=== PATIENT | female | born 1935 | race African-American/Black ===

== ENCOUNTER 2019-07-13 10:21 | Inpatient (IN) | payer MEDICARE, OTHER ==
[~2019-07-13] VITALS: Ht 167.6 cm; Wt 43.7 kg
[~2019-07-13 10:21] MED LIST: AMLO10TA80 PO; ASPI-1079 PO; BENA10TA75; CEPH GT; LISI40TA4 PO; PANT40SU2 PO; SUCR1ORA2 PO
[2019-07-13] MEDS ORDERED: IPRATROPIUM BROMIDE (0.02%) 0.5MG/2.5ML NEB HHN STA (11:06)
[2019-07-13] MEDS ORDERED: METHYLPREDNISOLONE SOD SUCC 125 MG/2 ML VIAL IV STA (11:06)
[2019-07-13] MEDS ORDERED: ALBUTEROL (0.083%) 2.5MG/3ML NEB HHN STA (11:06)
[2019-07-13] MEDS ORDERED: IPRATROPIUM BROMIDE (0.02%) 0.5MG/2.5ML NEB ONE (11:19)
[2019-07-13 11:57] LABS: BASOPHILS % 0.7 % (0.0-2.0); EOSINOPHILS % 2.5 % (0.0-5.0); HEMATOCRIT. 37.7 % (36.0-48.0); HEMOGLOBIN. 12.7 g/dL (12.0-16.0); LYMPHOCYTES % 13.7 % (20.0-50.0); MEAN CORPUSCULAR HEMOGLOBIN 29.8 pg (28.0-32.0); MEAN CORPUSCULAR VOLUME 88.3 fL (81.0-99.0); MEAN PLATELET VOLUME 7.8 fl (7.4-10.4); MONOCYTES % 7.1 % (2.0-8.0); PLATELET 365 x1000/uL (130-400); RED BLOOD CELL COUNT 4.26 mill/uL (4.2-5.4); RED CELL DISTRIBUTION WIDTH 15.1 % (11.6-14.6)
[2019-07-13 12:03] LABS: CHLORIDE 87 mEq/L (98-107)
[2019-07-13 12:38] LABS: BG BASE EXCESS -0.4 mmol/L (-2.0-2.0); BG CARBOXYHEMOGLOBIN 0.4 % (0.5-1.5); BG DEOXYHEMOGLOBIN 1.2 % (0.0-5.0); BG FRACTION INSPIRED OXYGEN 32; BG HCO3 ACT 24.7 mmol/L (22.0-26.0); BG METHEMOGLOBIN 0.3 % (0.0-1.5); BG OXYGEN SATURATION 98.8 % (92.0-98.5); BG OXYHEMOGLOBIN 98.1 % (94.0-97.0); BG PCO2 42.4 mmHg (35.0-45.0); BG PH 7.383 (7.350-7.450); BG PO2 149.6 mmHg (75.0-100.0); BG SAMPLE SITE RIGHT BRACHIAL; BG TOTAL HEMOGLOBIN 12.4 g/dL (12.0-18.0); BG VENT MODE NASAL CANNULA
[2019-07-13] MEDS: SODIUM CHLORIDE 0.9% 1,000 ML IV SCH (14:01)
[2019-07-13] MEDS ORDERED: DOCUSATE SODIUM 100MG CAPSULE PO PRN (14:15)
[2019-07-13] MEDS ORDERED: ONDANSETRON HCL 4MG/2ML INJ IV PRN (14:15)
[2019-07-13] MEDS ORDERED: CLONIDINE 0.1MG TABLET PO PRN (14:15)
[2019-07-13] MEDS ORDERED: ZOLPIDEM TARTRATE 5MG TABLET PO PRN (14:15)
[2019-07-13] MEDS ORDERED: NA PHOS,M-B/NA PHOS,DI-BA ENEMA 118ML PR PRN (14:15)
[2019-07-13] MEDS ORDERED: TRAMADOL 50MG TABLET PO PRN (14:15)
[2019-07-13] MEDS ORDERED: LORAZEPAM 0.5MG TABLET PO PRN (14:15)
[2019-07-13] MEDS ORDERED: GUAIFENESIN 200MG/10ML SUGAR FREE UDC PO PRN (14:15)
[2019-07-13] MEDS ORDERED: MAGNESIUM/ALUMINUM HYDROXIDE/SIMETHICONE 30ML UDC PO PRN (14:15)
[2019-07-13] MEDS ORDERED: ACETAMINOPHEN 325MG TABLET PO PRN (14:15)
[2019-07-13] MEDS ORDERED: IPRATROPIUM/ALBUTEROL 0.5-3(2.5)MG/3ML NEB NEB PRN (14:15)
[2019-07-13] MEDS ORDERED: ENOXAPARIN 40MG/0.4ML SYR SUBCUT SCH (14:15)
[2019-07-13] MEDS ORDERED: NITROGLYCERIN 0.4MG TABLET SL SL PRN (14:15)
[2019-07-13 15:14] VITALS: BP 135/74
[2019-07-13 15:32] VITALS: BP 135/74
[2019-07-13] MEDS ORDERED: HYDR12.54 MT (16:33)
[2019-07-13] MEDS ORDERED: VIT1TABL86 MT (16:33)
[2019-07-13] MEDS ORDERED: LEFL10TA15 MT (16:33)
[2019-07-13] MEDS ORDERED: LISI40TA4 MT (16:33)
[2019-07-13] MEDS: ENOXAPARIN 30MG/0.3ML SYR SUBCUT SCH (16:54)
[2019-07-13] MEDS: DILTIAZEM HCL 60MG TABLET PO SCH ×2 (16:59→23:05)
[2019-07-13] MEDS ORDERED: LEVOFLOXACIN 500MG PREMIX 100 ML IV SCH (18:00)
[2019-07-13 18:19] VITALS: BP 112/65
[2019-07-13 19:43] LABS: T4 FREE 1.64 ng/dL (0.76-1.46)
[2019-07-13 20:00] VITALS: BP 124/59
[2019-07-13] MEDS: IPRATROPIUM/ALBUTEROL 0.5-3(2.5)MG/3ML NEB HHN SCH ×2 (20:13→23:45)
[2019-07-13] MEDS: ASCORBIC ACID 500 MG TABLET PO SCH (21:16)
[2019-07-13] MEDS: FAMOTIDINE 20MG TABLET PO SCH (21:16)
[2019-07-13] MEDS: METHYLPREDNISOLONE SOD SUCC 125 MG/2 ML VIAL IV SCH (21:17)
[2019-07-13 22:00] VITALS: BP 121/44
[2019-07-13 23:36] LABS: CLARITY URINE CLEAR (CLEAR); COLOR URINE YELLOW (YELLOW); KETONES URINE 1+ (NEGATIVE); LEUKOCYTE ESTERASE URINE NEGATIVE (NEGATIVE); NITRITE URINE NEGATIVE (NEGATIVE); OCCULT BLOOD URINE NEGATIVE (NEGATIVE); PROTEIN URINE TRACE (NEGATIVE); SPECIFIC GRAVITY URINE 1.022 (1.005-1.030); UROBILINOGEN URINE 0.2 E.U./dL (0.2-1.0)
[2019-07-13 23:54] VITALS: BP 145/65
[2019-07-14] VITALS (11 sets, daily range): BP systolic 100–134; BP diastolic 50–73
[2019-07-14 00:03] LABS: CREATINE KINASE 52 IU/L (26-192); CREATINE KINASE MB FRACTION 2.7 ng/mL (0.5-3.6)
[2019-07-14] MEDS: SODIUM CHLORIDE 0.9% 1,000 ML IV SCH ×2 (02:54→17:06)
[2019-07-14] MEDS: IPRATROPIUM/ALBUTEROL 0.5-3(2.5)MG/3ML NEB HHN SCH ×5 (04:14→21:39)
[2019-07-14] MEDS: METHYLPREDNISOLONE SOD SUCC 125 MG/2 ML VIAL IV SCH (05:00)
[2019-07-14] MEDS: DILTIAZEM HCL 60MG TABLET PO SCH ×3 (05:00→17:08)
[2019-07-14 07:29] LABS: CREATINE KINASE 46 IU/L (26-192); CREATINE KINASE MB FRACTION 2.7 ng/mL (0.5-3.6)
[2019-07-14] MEDS: ASCORBIC ACID 500 MG TABLET PO SCH ×2 (08:43→21:20)
[2019-07-14] MEDS: ASPIRIN 325MG EC TABLET PO SCH (08:43)
[2019-07-14] MEDS: ZINC SULFATE 220 MG ( 50 ) CAPSULE PO SCH (08:43)
[2019-07-14 11:30] LABS: *AMPHETAMINES SCREEN URINE NEGATIVE (NEGATIVE); *BARBITURATES SCREEN URINE NEGATIVE (NEGATIVE); *BENZODIAZEPINES SCREEN URINE NEGATIVE (NEGATIVE)
[2019-07-14 11:33] LABS: OPIATES URINE SCREEN PRESUMTIVE POSITIVE (NEGATIVE); PHENCYCLIDINE URINE SCREEN NEGATIVE (NEGATIVE)
[2019-07-14 11:34] LABS: CANNABINOID URINE SCREEN NEGATIVE (NEGATIVE)
[2019-07-14 11:35] LABS: METHADONE URINE SCREEN NEGATIVE (NEGATIVE)
[2019-07-14] MEDS ORDERED: INFLUENZA VIRUS VACCINE(AFLURIA) 0.5ML SYR IM ONE (12:00)
[2019-07-14 12:45] LABS: CHLORIDE 91 mEq/L (98-107)
[2019-07-14] MEDS: LEVOFLOXACIN 250MG PREMIX 50 ML IV SCH (13:23)
[2019-07-14 13:29] LABS: *COCAINE SCREEN URINE NEGATIVE (NEGATIVE)
[2019-07-14] MEDS: METHYLPREDNISOLONE SOD SUCC 40 MG/ML VIAL IV SCH ×2 (14:37→21:20)
[2019-07-14] MEDS: MONTELUKAST SODIUM 10MG TABLET PO SCH (17:07)
[2019-07-14] MEDS: ENOXAPARIN 30MG/0.3ML SYR SUBCUT SCH (17:07)
[2019-07-14] MEDS: FLUTICASONE PROPIONATE 50MCG/SPRAY BOTTLE BOTHNSTRLS SCH (21:20)
[2019-07-14] MEDS: FAMOTIDINE 20MG TABLET PO SCH (21:20)
[2019-07-15] VITALS (12 sets, daily range): BP systolic 97–137; BP diastolic 49–90
[2019-07-15] MEDS: IPRATROPIUM/ALBUTEROL 0.5-3(2.5)MG/3ML NEB HHN SCH ×6 (01:22→20:30)
[2019-07-15] MEDS: SODIUM CHLORIDE 0.9% 1,000 ML IV SCH ×2 (06:03→21:05)
[2019-07-15] MEDS: METHYLPREDNISOLONE SOD SUCC 40 MG/ML VIAL IV SCH ×3 (06:03→20:59)
[2019-07-15] MEDS: DILTIAZEM HCL 60MG TABLET PO SCH ×4 (06:03→17:50)
[2019-07-15 07:05] LABS: CHLORIDE 97 mEq/L (98-107)
[2019-07-15 07:11] LABS: HEMOGLOBIN. 10.6 g/dL (12.0-16.0); MEAN CORPUSCULAR HEMOGLOBIN 28.8 pg (28.0-32.0); MEAN CORPUSCULAR VOLUME 86.9 fL (81.0-99.0); MEAN PLATELET VOLUME 7.9 fl (7.4-10.4); PLATELET 328 x1000/uL (130-400); RED BLOOD CELL COUNT 3.69 mill/uL (4.2-5.4); RED CELL DISTRIBUTION WIDTH 15.3 % (11.6-14.6)
[2019-07-15 07:39] LABS: PHOSPHORUS 2.2 mg/dL (2.5-4.9)
[2019-07-15] MEDS: ZINC SULFATE 220 MG ( 50 ) CAPSULE PO SCH (08:53)
[2019-07-15] MEDS: ASCORBIC ACID 500 MG TABLET PO SCH ×2 (08:53→20:59)
[2019-07-15] MEDS: ASPIRIN 325MG EC TABLET PO SCH (08:53)
[2019-07-15] MEDS: FLUTICASONE PROPIONATE 50MCG/SPRAY BOTTLE BOTHNSTRLS SCH ×2 (08:53→21:04)
[2019-07-15] MEDS: LEVOFLOXACIN 250MG PREMIX 50 ML IV SCH (14:41)
[2019-07-15 17:24] LABS: PLATELET ESTIMATE NORMAL
[2019-07-15] MEDS: MONTELUKAST SODIUM 10MG TABLET PO SCH ×2 (17:48→17:50)
[2019-07-15] MEDS: ENOXAPARIN 30MG/0.3ML SYR SUBCUT SCH (17:51)
[2019-07-15] MEDS: LORATADINE 10MG TABLET PO SCH (17:56)
[2019-07-15] MEDS: FAMOTIDINE 20MG TABLET PO SCH (20:59)
[2019-07-16] VITALS (8 sets, daily range): BP systolic 101–137; BP diastolic 52–117
[2019-07-16] MEDS: IPRATROPIUM/ALBUTEROL 0.5-3(2.5)MG/3ML NEB HHN SCH ×3 (00:27→08:13)
[2019-07-16] MEDS: DILTIAZEM HCL 60MG TABLET PO SCH ×3 (01:18→12:42)
[2019-07-16] MEDS: FLUTICASONE PROPIONATE 50MCG/SPRAY BOTTLE BOTHNSTRLS SCH (08:18)
[2019-07-16] MEDS: ZINC SULFATE 220 MG ( 50 ) CAPSULE PO SCH (08:19)
[2019-07-16] MEDS: LORATADINE 10MG TABLET PO SCH (08:19)
[2019-07-16] MEDS: SODIUM CHLORIDE 0.9% 1,000 ML IV SCH (08:19)
[2019-07-16] MEDS: ASCORBIC ACID 500 MG TABLET PO SCH (08:19)
[2019-07-16] MEDS: ASPIRIN 325MG EC TABLET PO SCH (08:19)
[2019-07-16] MEDS ORDERED: METHYLPREDNISOLONE SOD SUCC 40 MG/ML VIAL IV SCH (09:00)
== END 2019-07-16 13:12 | disposition home health service (06) | DRG 189 ==
LOC: ER 10:21 → 3WST 12:46 → EDBEDREQ 12:53 → ENRESERV 14:03
PROVIDERS: ADMIT Internal Medicine; ATTEND Internal Medicine
PROC: 5A09357 Assistance with Respiratory Ventilation, Less than 24 Consecutive Hours, Continuous Positive Airway Pressure (ICD-10-PCS; principal; 2019-07-13)
DX: J96.00 Acute respiratory failure, unspecified whether with hypoxia or hypercapnia (principal); J44.1 Chronic obstructive pulmonary disease with (acute) exacerbation; E87.1 Hypo-osmolality and hyponatremia; I10 Essential (primary) hypertension; K21.9 Gastro-esophageal reflux disease without esophagitis; J31.0 Chronic rhinitis; Z82.49 Family history of ischemic heart disease and other diseases of the circulatory system; Z87.891 Personal history of nicotine dependence; Z90.710 Acquired absence of both cervix and uterus; Z88.8 Allergy status to other drugs, medicaments and biological substances; Z79.82 Long term (current) use of aspirin; Z79.899 Other long term (current) drug therapy
CPT/HCPCS: 36415; 36600; 71045; 80048; 80053; 80061; 80305; 81003; 82375; 82550; 82553; 82805; 83036; 83735; 83880; 84100; 84300; 84439; 84443; 84484; 85025; 85379; 90686; 93005; 93306; 93970; 94640; 94644; 94660; 97162; 99291; J1650; J1956; J2920; J2930

== ENCOUNTER 2019-10-24 13:13 | Inpatient (IN) | payer MEDICARE, OTHER ==
[~2019-10-24] VITALS: Ht 162.6 cm; Wt 50.8 kg
[~2019-10-24 13:13] MED LIST changes: +HYDR12.54 MT; +LEFL10TA15 MT; +LISI40TA4 MT; +VIT1TABL86 MT
[2019-10-24] MEDS ORDERED: METHYLPREDNISOLONE SOD SUCC 125 MG/2 ML VIAL IV STA (13:45)
[2019-10-24] MEDS ORDERED: ASPIRIN 81MG TABLET PO ONE (13:45)
[2019-10-24] MEDS ORDERED: NITROGLYCERIN 0.4MG TABLET SL SL PRN ×2 (13:45→15:45)
[2019-10-24] MEDS ORDERED: IPRATROPIUM BROMIDE (0.02%) 0.5MG/2.5ML NEB HHN STA (13:45)
[2019-10-24] MEDS ORDERED: ALBUTEROL (0.083%) 2.5MG/3ML NEB HHN STA (13:45)
[2019-10-24 14:00] LABS: BASOPHILS % 0.7 % (0.0-2.0); EOSINOPHILS % 1.3 % (0.0-5.0); HEMATOCRIT. 39.2 % (36.0-48.0); HEMOGLOBIN. 13.4 g/dL (12.0-16.0); LYMPHOCYTES % 15.6 % (20.0-50.0); MEAN CORPUSCULAR HEMOGLOBIN 29.2 pg (28.0-32.0); MEAN CORPUSCULAR VOLUME 85.6 fL (81.0-99.0); MEAN PLATELET VOLUME 7.3 fl (7.4-10.4); MONOCYTES % 5.1 % (2.0-8.0); NEUTROPHILS % 77.3 % (40.0-76.0); PLATELET 440 x1000/uL (130-400); RED BLOOD CELL COUNT 4.58 mill/uL (4.2-5.4); RED CELL DISTRIBUTION WIDTH 15.3 % (11.6-14.6)
[2019-10-24 14:05] LABS: CHLORIDE 84 mEq/L (98-107)
[2019-10-24] MEDS ORDERED: ACETAMINOPHEN 325MG TABLET PO PRN ×2 (15:45)
[2019-10-24] MEDS ORDERED: MAGNESIUM/ALUMINUM HYDROXIDE/SIMETHICONE 30ML UDC PO PRN (15:45)
[2019-10-24] MEDS ORDERED: TRAMADOL 50MG TABLET PO PRN (15:45)
[2019-10-24] MEDS ORDERED: IPRATROPIUM/ALBUTEROL 0.5-3(2.5)MG/3ML NEB ORI PRN (15:45)
[2019-10-24] MEDS ORDERED: CLONIDINE 0.1MG TABLET PO PRN (15:45)
[2019-10-24] MEDS ORDERED: ONDANSETRON HCL 4MG/2ML INJ IV PRN (15:45)
[2019-10-24] MEDS ORDERED: DOCUSATE SODIUM 100MG CAPSULE PO PRN (15:45)
[2019-10-24] MEDS ORDERED: LORAZEPAM 0.5MG TABLET PO PRN (15:45)
[2019-10-24] MEDS ORDERED: ZOLPIDEM TARTRATE 5MG TABLET PO PRN (15:45)
[2019-10-24] MEDS ORDERED: GUAIFENESIN 200MG/10ML SUGAR FREE UDC PO PRN (15:45)
[2019-10-24] MEDS ORDERED: ENOXAPARIN 40MG/0.4ML SYR SUBCUT SCH (16:00)
[2019-10-24] MEDS ORDERED: AZITHROMYCIN 500 MG in DEXT 5% WATER 250 ML IV SCH (16:30)
[2019-10-24] MEDS: SODIUM CHLORIDE 0.9% 1,000 ML IV SCH (16:34)
[2019-10-24 17:36] VITALS: BP 132/66
[2019-10-24 17:57] VITALS: BP 132/66
[2019-10-24] MEDS: SUCRALFATE 1 G/10 ML UDC PO SCH ×2 (18:44→20:54)
[2019-10-24] MEDS: AMLODIPINE 10MG TABLET PO SCH (18:44)
[2019-10-24 19:27] VITALS: BP 153/86
[2019-10-24 20:00] VITALS: BP 105/49
[2019-10-24] MEDS ORDERED: LISINOPRIL 20MG TABLET PO SCH (21:00)
[2019-10-24] MEDS: METHYLPREDNISOLONE SOD SUCC 125 MG/2 ML VIAL IV SCH (21:13)
[2019-10-24] MEDS: AZITHROMYCIN 500 MG in DEXT 5% WATER 250 ML IV SCH (21:13)
[2019-10-24] MEDS: GUAIFENESIN 600MG ER TABLET PO SCH (21:13)
[2019-10-24] MEDS: ASCORBIC ACID 500 MG TABLET PO SCH (21:13)
[2019-10-24 21:32] LABS: SODIUM URINE RANDOM 22 mEq/L
[2019-10-24 21:38] LABS: *AMPHETAMINES SCREEN URINE NEGATIVE (NEGATIVE); *BARBITURATES SCREEN URINE NEGATIVE (NEGATIVE); *BENZODIAZEPINES SCREEN URINE NEGATIVE (NEGATIVE); *COCAINE SCREEN URINE NEGATIVE (NEGATIVE); CANNABINOID URINE SCREEN NEGATIVE (NEGATIVE); PHENCYCLIDINE URINE SCREEN NEGATIVE (NEGATIVE)
[2019-10-24 21:39] LABS: METHADONE URINE SCREEN NEGATIVE (NEGATIVE); OPIATES URINE SCREEN NEGATIVE (NEGATIVE)
[2019-10-24 22:00] VITALS: BP 118/27
[2019-10-24 23:24] LABS: CREATINE KINASE 112 IU/L (26-192)
[2019-10-24 23:25] LABS: CREATINE KINASE MB FRACTION 3.6 ng/mL (0.5-3.6)
[2019-10-25] VITALS (12 sets, daily range): BP systolic 102–130; BP diastolic 51–79
[2019-10-25] MEDS ORDERED: CHOL40002 PO (01:33)
[2019-10-25] MEDS ORDERED: FLUT16SP15 INH (01:35)
[2019-10-25] MEDS ORDERED: TIOT18CA3 PO (01:41)
[2019-10-25] MEDS ORDERED: MULT-1146 PO (01:42)
[2019-10-25] MEDS ORDERED: METO-385 PO (01:43)
[2019-10-25] MEDS ORDERED: ALBUTEROL (01:46)
[2019-10-25] MEDS: SODIUM CHLORIDE 0.9% 1,000 ML IV SCH ×2 (04:30→16:09)
[2019-10-25] MEDS: METHYLPREDNISOLONE SOD SUCC 125 MG/2 ML VIAL IV SCH ×3 (05:31→22:00)
[2019-10-25] MEDS: SUCRALFATE 1 G/10 ML UDC PO SCH ×4 (06:18→20:25)
[2019-10-25 06:57] LABS: CHLORIDE 90 mEq/L (98-107)
[2019-10-25 07:01] LABS: BASOPHILS % 0.4 % (0.0-2.0); HEMOGLOBIN. 11.6 g/dL (12.0-16.0); LYMPHOCYTES % 14.8 % (20.0-50.0); MEAN CORPUSCULAR HEMOGLOBIN 29.3 pg (28.0-32.0); MEAN CORPUSCULAR VOLUME 86.1 fL (81.0-99.0); MEAN PLATELET VOLUME 7.7 fl (7.4-10.4); MONOCYTES % 1.8 % (2.0-8.0); PLATELET 360 x1000/uL (130-400); RED BLOOD CELL COUNT 3.95 mill/uL (4.2-5.4); RED CELL DISTRIBUTION WIDTH 15.3 % (11.6-14.6)
[2019-10-25 07:16] LABS: PHOSPHORUS 3.2 mg/dL (2.5-4.9)
[2019-10-25 07:18] LABS: CREATINE KINASE 56 IU/L (26-192)
[2019-10-25 07:22] LABS: CREATINE KINASE MB FRACTION 3.4 ng/mL (0.5-3.6)
[2019-10-25] MEDS: GUAIFENESIN 600MG ER TABLET PO SCH ×2 (08:28→20:25)
[2019-10-25] MEDS: ZINC SULFATE 220 MG ( 50 ) CAPSULE PO SCH (08:28)
[2019-10-25] MEDS: ASCORBIC ACID 500 MG TABLET PO SCH ×2 (08:28→22:01)
[2019-10-25] MEDS: IPRATROPIUM/ALBUTEROL 0.5-3(2.5)MG/3ML NEB HHN SCH ×4 (08:30→21:45)
[2019-10-25] MEDS: AMLODIPINE 10MG TABLET PO SCH (08:31)
[2019-10-25] MEDS ORDERED: MAGNESIUM 2 G PREMIX 50 ML IV SCH (11:00)
[2019-10-25] MEDS: ENOXAPARIN 30MG/0.3ML SYR SUBCUT SCH (15:57)
[2019-10-25] MEDS: AZITHROMYCIN 500 MG in DEXT 5% WATER 250 ML IV SCH (20:25)
[2019-10-26] VITALS (12 sets, daily range): BP systolic 106–166; BP diastolic 32–69
[2019-10-26] MEDS: IPRATROPIUM/ALBUTEROL 0.5-3(2.5)MG/3ML NEB HHN SCH ×3 (01:14→10:10)
[2019-10-26] MEDS: SUCRALFATE 1 G/10 ML UDC PO SCH ×4 (06:10→21:26)
[2019-10-26] MEDS: METHYLPREDNISOLONE SOD SUCC 125 MG/2 ML VIAL IV SCH (06:11)
[2019-10-26] MEDS: SODIUM CHLORIDE 0.9% 1,000 ML IV SCH (06:17)
[2019-10-26 07:14] LABS: HEMATOCRIT. 37.6 % (36.0-48.0); HEMOGLOBIN. 12.4 g/dL (12.0-16.0); MEAN CORPUSCULAR HEMOGLOBIN 28.7 pg (28.0-32.0); MEAN CORPUSCULAR VOLUME 87.5 fL (81.0-99.0); MEAN PLATELET VOLUME 7.2 fl (7.4-10.4); PLATELET 245 x1000/uL (130-400); RED CELL DISTRIBUTION WIDTH 15.7 % (11.6-14.6)
[2019-10-26] MEDS: AMLODIPINE 10MG TABLET PO SCH (08:04)
[2019-10-26] MEDS: GUAIFENESIN 600MG ER TABLET PO SCH ×2 (08:04→21:26)
[2019-10-26] MEDS: ASCORBIC ACID 500 MG TABLET PO SCH ×2 (08:04→21:26)
[2019-10-26] MEDS: ZINC SULFATE 220 MG ( 50 ) CAPSULE PO SCH (08:04)
[2019-10-26 09:17] LABS: CHLORIDE 92 mEq/L (98-107)
[2019-10-26] MEDS: METHYLPREDNISOLONE SOD SUCC 40 MG/ML VIAL IV SCH ×2 (13:16→21:26)
[2019-10-26 13:20] LABS: PLATELET ESTIMATE NORMAL
[2019-10-26] MEDS: SODIUM CHLORIDE 1000MG TABLET PO SCH ×2 (13:34→16:46)
[2019-10-26] MEDS: IPRATROPIUM BROMIDE (0.02%) 0.5MG/2.5ML NEB HHN SCH ×2 (15:50→22:18)
[2019-10-26] MEDS: ENOXAPARIN 30MG/0.3ML SYR SUBCUT SCH (16:46)
[2019-10-26] MEDS: AZITHROMYCIN 500 MG in DEXT 5% WATER 250 ML IV SCH (21:26)
[2019-10-27] VITALS (12 sets, daily range): BP systolic 96–131; BP diastolic 53–68
[2019-10-27] MEDS: IPRATROPIUM BROMIDE (0.02%) 0.5MG/2.5ML NEB HHN SCH ×4 (01:13→20:04)
[2019-10-27] MEDS: SUCRALFATE 1 G/10 ML UDC PO SCH ×4 (05:54→20:58)
[2019-10-27] MEDS: METHYLPREDNISOLONE SOD SUCC 40 MG/ML VIAL IV SCH ×2 (05:54→17:22)
[2019-10-27 06:14] LABS: HEMATOCRIT. 32.7 % (36.0-48.0); MEAN CORPUSCULAR HEMOGLOBIN 28.6 pg (28.0-32.0); MEAN CORPUSCULAR VOLUME 84.8 fL (81.0-99.0); MEAN PLATELET VOLUME 6.9 fl (7.4-10.4); PLATELET 358 x1000/uL (130-400); RED BLOOD CELL COUNT 3.86 mill/uL (4.2-5.4); RED CELL DISTRIBUTION WIDTH 15.7 % (11.6-14.6)
[2019-10-27 06:39] LABS: CHLORIDE 98 mEq/L (98-107)
[2019-10-27 06:53] LABS: PHOSPHORUS 1.9 mg/dL (2.5-4.9)
[2019-10-27] MEDS: SODIUM CHLORIDE 1000MG TABLET PO SCH ×3 (08:00→16:13)
[2019-10-27] MEDS: GUAIFENESIN 600MG ER TABLET PO SCH ×2 (08:00→20:58)
[2019-10-27] MEDS: ZINC SULFATE 220 MG ( 50 ) CAPSULE PO SCH (08:00)
[2019-10-27] MEDS: ASCORBIC ACID 500 MG TABLET PO SCH ×2 (08:00→20:58)
[2019-10-27] MEDS: AMLODIPINE 10MG TABLET PO SCH (08:00)
[2019-10-27 10:42] LABS: PLATELET ESTIMATE NORMAL
[2019-10-27] MEDS: ENOXAPARIN 30MG/0.3ML SYR SUBCUT SCH (16:13)
[2019-10-27] MEDS: AZITHROMYCIN 500 MG in DEXT 5% WATER 250 ML IV SCH (20:58)
[2019-10-28] VITALS (8 sets, daily range): BP systolic 115–138; BP diastolic 62–81
[2019-10-28] MEDS: IPRATROPIUM BROMIDE (0.02%) 0.5MG/2.5ML NEB HHN SCH ×2 (01:39→09:05)
[2019-10-28] MEDS: SUCRALFATE 1 G/10 ML UDC PO SCH ×2 (06:41→12:02)
[2019-10-28] MEDS: METHYLPREDNISOLONE SOD SUCC 40 MG/ML VIAL IV SCH (06:41)
[2019-10-28] MEDS: AMLODIPINE 10MG TABLET PO SCH (08:43)
[2019-10-28] MEDS: ZINC SULFATE 220 MG ( 50 ) CAPSULE PO SCH (08:43)
[2019-10-28] MEDS: ASCORBIC ACID 500 MG TABLET PO SCH (08:43)
[2019-10-28] MEDS: GUAIFENESIN 600MG ER TABLET PO SCH (08:44)
[2019-10-28] MEDS: SODIUM CHLORIDE 1000MG TABLET PO SCH ×2 (08:44→12:03)
[2019-10-29] MEDS ORDERED: METHYLPREDNISOLONE SOD SUCC 40 MG/ML VIAL IV SCH (09:00)
== END 2019-10-28 14:03 | disposition home or self-care (01) | DRG 189 ==
LOC: ER 13:32 → EDBEDREQ 15:19 → EDBEDREQTM 15:19 → MICUSO 15:34 → 3WST 17:23
PROVIDERS: ADMIT Internal Medicine; ATTEND Internal Medicine
DX: J96.00 Acute respiratory failure, unspecified whether with hypoxia or hypercapnia (principal); J44.1 Chronic obstructive pulmonary disease with (acute) exacerbation; E87.1 Hypo-osmolality and hyponatremia; E46 Unspecified protein-calorie malnutrition; Z68.1 Body mass index [BMI] 19.9 or less, adult; I10 Essential (primary) hypertension; K21.9 Gastro-esophageal reflux disease without esophagitis; M19.90 Unspecified osteoarthritis, unspecified site; R79.89 Other specified abnormal findings of blood chemistry; T38.0X5A Adverse effect of glucocorticoids and synthetic analogues, initial encounter; T50.2X5A Adverse effect of carbonic-anhydrase inhibitors, benzothiadiazides and other diuretics, initial encounter; Y92.89 Other specified places as the place of occurrence of the external cause; Z88.8 Allergy status to other drugs, medicaments and biological substances; Z79.82 Long term (current) use of aspirin; Z79.899 Other long term (current) drug therapy; Z90.49 Acquired absence of other specified parts of digestive tract; Z90.710 Acquired absence of both cervix and uterus
CPT/HCPCS: 36415; 71045; 80053; 80305; 80320; 82550; 82553; 83036; 83735; 83880; 84100; 84300; 84484; 85025; 93005; 93970; 94640; 99291; J0456; J1650; J2920; J2930; J3475; J7030; J7060; G0480

== ENCOUNTER 2020-02-05 22:30 | Inpatient (IN) | payer MEDICARE, OTHER ==
[~2020-02-05] VITALS: Ht 162.6 cm; Wt 38.1 kg
[~2020-02-05 22:30] MED LIST changes: +ALBUTEROL; -BENA10TA75; +CHOL40002 PO; +FLUT16SP15 INH; -HYDR12.54 MT; -LISI40TA4 MT; +METO-385 PO; +MULT-1146 PO; +TIOT18CA3 PO
[2020-02-05] MEDS ORDERED: ALBUTEROL (0.083%) 2.5MG/3ML NEB HHN STA (22:51)
[2020-02-05] MEDS ORDERED: IPRATROPIUM BROMIDE (0.02%) 0.5MG/2.5ML NEB HHN STA (22:51)
[2020-02-05 23:46] LABS: BG BASE EXCESS 1.1 mmol/L (-2.0-2.0); BG CARBOXYHEMOGLOBIN 0.7 % (0.5-1.5); BG DEOXYHEMOGLOBIN 0.9 % (0.0-5.0); BG FRACTION INSPIRED OXYGEN 32; BG HCO3 ACT 27.2 mmol/L (22.0-26.0); BG METHEMOGLOBIN 0.1 % (0.0-1.5); BG OXYGEN SATURATION 99.1 % (92.0-98.5); BG OXYHEMOGLOBIN 98.3 % (94.0-97.0); BG PCO2 49.1 mmHg (35.0-45.0); BG PH 7.361 (7.350-7.450); BG PO2 157.5 mmHg (75.0-100.0); BG SAMPLE SITE RIGHT RADIAL; BG TOTAL HEMOGLOBIN 12.9 g/dL (12.0-18.0); BG VENT MODE NASAL CANNULA
[2020-02-06 00:37] LABS: BASOPHILS % 0.6 % (0.0-2.0); EOSINOPHILS % 3.2 % (0.0-5.0); HEMATOCRIT. 35.7 % (36.0-48.0); LYMPHOCYTES % 10.5 % (20.0-50.0); MEAN CORPUSCULAR HEMOGLOBIN 29.2 pg (28.0-32.0); MEAN PLATELET VOLUME 7.3 fl (7.4-10.4); NEUTROPHILS % 79.7 % (40.0-76.0); PLATELET 351 x1000/uL (130-400); RED CELL DISTRIBUTION WIDTH 14.8 % (11.6-14.6)
[2020-02-06 00:42] LABS: CHLORIDE 92 mEq/L (98-107)
[2020-02-06] MEDS ORDERED: METHYLPREDNISOLONE SOD SUCC 125 MG/2 ML VIAL IV ONE (02:15)
[2020-02-06] MEDS ORDERED: IPRATROPIUM BROMIDE (0.02%) 0.5MG/2.5ML NEB HHN SCH (03:00)
[2020-02-06] MEDS ORDERED: MAGNESIUM/ALUMINUM HYDROXIDE/SIMETHICONE 30ML UDC PO PRN (03:00)
[2020-02-06] MEDS ORDERED: CLONIDINE 0.1MG TABLET PO PRN (03:00)
[2020-02-06] MEDS ORDERED: ONDANSETRON HCL 4MG/2ML INJ IV PRN (03:00)
[2020-02-06] MEDS ORDERED: DIPHENHYDRAMINE 50MG/ML VIAL IV PRN (03:00)
[2020-02-06] MEDS ORDERED: ACETAMINOPHEN 325MG TABLET PO PRN ×2 (03:00)
[2020-02-06] MEDS: METHYLPREDNISOLONE SOD SUCC 125 MG/2 ML VIAL IV SCH ×3 (06:00→21:46)
[2020-02-06] MEDS: SODIUM CHLORIDE 0.9% INJ 3ML FLUSH IVF SCH ×2 (06:00→16:22)
[2020-02-06] MEDS ORDERED: FAMOTIDINE 20MG TABLET PO SCH (09:00)
[2020-02-06 10:00] VITALS: BP 136/78
[2020-02-06] MEDS: ENOXAPARIN 30MG/0.3ML SYR SUBCUT SCH (11:18)
[2020-02-06] MEDS: ASPIRIN 81MG EC TABLET PO SCH (11:18)
[2020-02-06] MEDS: GUAIFENESIN 600MG ER TABLET PO SCH ×2 (11:18→21:45)
[2020-02-06 11:30] VITALS: BP 135/75
[2020-02-06 12:00] VITALS: BP 129/80
[2020-02-06 16:00] VITALS: BP 105/57
[2020-02-06 18:00] VITALS: BP 139/67
[2020-02-06] MEDS ORDERED: DEXTROSE 50% WATER 50ML SYRINGE IV PRN (18:00)
[2020-02-06] MEDS ORDERED: IPRATROPIUM/ALBUTEROL 0.5-3(2.5)MG/3ML NEB HHN PRN (18:00)
[2020-02-06] MEDS: FAMOTIDINE 20MG TABLET PO SCH (19:05)
[2020-02-06 20:00] VITALS: BP 146/81
[2020-02-06] MEDS: IPRATROPIUM/ALBUTEROL 0.5-3(2.5)MG/3ML NEB HHN SCH (20:32)
[2020-02-06] MEDS: INSULIN LISPRO 100 UNITS/ML SUBCUT SCH (21:00)
[2020-02-06] MEDS: BLOOD SUGAR DIAGNOSTIC STRIP TEST SCH (21:00)
[2020-02-06] MEDS ORDERED: ZOLPIDEM TARTRATE 5MG TABLET PO PRN (21:00)
[2020-02-06] MEDS ORDERED: ATORVASTATIN CALCIUM 10MG TABLET PO SCH (21:00)
[2020-02-06] MEDS: ATORVASTATIN CALCIUM 10MG TABLET PO SCH (21:45)
[2020-02-07] VITALS: BP 122/101
[2020-02-07] MEDS: IPRATROPIUM/ALBUTEROL 0.5-3(2.5)MG/3ML NEB HHN SCH ×4 (01:10→20:45)
[2020-02-07 04:00] VITALS: BP 124/64
[2020-02-07] MEDS: FAMOTIDINE 20MG TABLET PO SCH ×2 (05:31→18:19)
[2020-02-07] MEDS: METHYLPREDNISOLONE SOD SUCC 125 MG/2 ML VIAL IV SCH (05:31)
[2020-02-07] MEDS: SODIUM CHLORIDE 0.9% INJ 3ML FLUSH IVF SCH ×3 (05:32→20:35)
[2020-02-07 06:03] LABS: HEMATOCRIT. 33.3 % (36.0-48.0); MEAN CORPUSCULAR HEMOGLOBIN 28.6 pg (28.0-32.0); MEAN CORPUSCULAR VOLUME 86.4 fL (81.0-99.0); MEAN PLATELET VOLUME 7.3 fl (7.4-10.4); PLATELET 343 x1000/uL (130-400); RED BLOOD CELL COUNT 3.85 mill/uL (4.2-5.4); RED CELL DISTRIBUTION WIDTH 15.3 % (11.6-14.6)
[2020-02-07] MEDS: INSULIN LISPRO 100 UNITS/ML SUBCUT SCH ×2 (06:19→12:40)
[2020-02-07] MEDS: BLOOD SUGAR DIAGNOSTIC STRIP TEST SCH ×2 (06:19→12:57)
[2020-02-07 08:00] VITALS: BP 135/69
[2020-02-07 08:57] LABS: CHLORIDE 94 mEq/L (98-107)
[2020-02-07] MEDS ORDERED: ASPIRIN 81MG EC TABLET PO SCH (09:00)
[2020-02-07] MEDS: ENOXAPARIN 30MG/0.3ML SYR SUBCUT SCH (09:07)
[2020-02-07] MEDS: ASPIRIN 81MG EC TABLET PO SCH (09:07)
[2020-02-07] MEDS: GUAIFENESIN 600MG ER TABLET PO SCH ×2 (09:07→20:29)
[2020-02-07 09:13] LABS: PHOSPHORUS 2.7 mg/dL (2.5-4.9)
[2020-02-07] MEDS ORDERED: METOPROLOL TARTRATE 50MG TABLET PO NR (10:00)
[2020-02-07 11:37] VITALS: BP 159/69
[2020-02-07] MEDS ORDERED: MAGNESIUM 1 G PREMIX 100 ML IV NR (14:00)
[2020-02-07 14:49] LABS: PLATELET ESTIMATE NORMAL
[2020-02-07 16:00] VITALS: BP 134/72
[2020-02-07 20:00] VITALS: BP 133/63
[2020-02-07] MEDS: ATORVASTATIN CALCIUM 10MG TABLET PO SCH (20:29)
[2020-02-07] MEDS: METOPROLOL TARTRATE 50MG TABLET PO SCH ×2 (20:32→20:40)
[2020-02-07] MEDS: BUDESONIDE 0.5MG/2ML NEB HHN SCH (20:45)
[2020-02-08] VITALS: BP 139/61
[2020-02-08] MEDS: IPRATROPIUM/ALBUTEROL 0.5-3(2.5)MG/3ML NEB HHN SCH ×3 (01:34→14:55)
[2020-02-08 04:00] VITALS: BP 137/70
[2020-02-08] MEDS: FAMOTIDINE 20MG TABLET PO SCH (05:49)
[2020-02-08] MEDS: SODIUM CHLORIDE 0.9% INJ 3ML FLUSH IVF SCH ×2 (05:49→15:34)
[2020-02-08 08:00] VITALS: BP 145/68
[2020-02-08] MEDS: METOPROLOL TARTRATE 50MG TABLET PO SCH (09:05)
[2020-02-08] MEDS: GUAIFENESIN 600MG ER TABLET PO SCH (09:05)
[2020-02-08] MEDS: ASPIRIN 81MG EC TABLET PO SCH (09:06)
[2020-02-08] MEDS: BUDESONIDE 0.5MG/2ML NEB HHN SCH (10:05)
[2020-02-08 12:00] VITALS: BP 151/62
[2020-02-08] MEDS ORDERED: POTASSIUM CHLORIDE 20MEQ TABLET SR PO NR (14:30)
[2020-02-08 16:00] VITALS: BP 131/62
[2020-02-08] MEDS ORDERED: MAGNESIUM 2 G PREMIX 50 ML IV NR (16:00)
[2020-02-08 17:20] VITALS: BP 131/61
== END 2020-02-08 19:05 | disposition home or self-care (01) | DRG 189 ==
LOC: ER 22:30 → 7WST 02-06 02:39 → ENRESERV 02-06 08:20 → 8WST 02-06 16:46
PROVIDERS: ADMIT Internal Medicine; ATTEND Internal Medicine
DX: J96.00 Acute respiratory failure, unspecified whether with hypoxia or hypercapnia (principal); J44.1 Chronic obstructive pulmonary disease with (acute) exacerbation; K21.9 Gastro-esophageal reflux disease without esophagitis; M19.90 Unspecified osteoarthritis, unspecified site; I10 Essential (primary) hypertension; Z20.828 Contact with and (suspected) exposure to other viral communicable diseases; M85.80 Other specified disorders of bone density and structure, unspecified site; Z90.710 Acquired absence of both cervix and uterus; Z90.49 Acquired absence of other specified parts of digestive tract; Z88.8 Allergy status to other drugs, medicaments and biological substances; Z79.82 Long term (current) use of aspirin; Z79.899 Other long term (current) drug therapy
CPT/HCPCS: 36415; 36600; 71045; 80048; 80051; 80053; 82375; 82805; 82962; 83036; 83735; 83880; 84100; 84484; 85025; 93005; 94640; 94644; 99291; J1650; J2930; J3475; J7626; U0003-CS

== ENCOUNTER 2020-04-29 23:52 | Inpatient (IN) | payer MEDICARE, OTHER ==
[~2020-04-29] VITALS: Ht 149.9 cm; Wt 36.3 kg
[2020-04-30] MEDS ORDERED: IPRATROPIUM BROMIDE (0.02%) 0.5MG/2.5ML NEB HHN ONE (00:30)
[2020-04-30] MEDS ORDERED: ALBUTEROL (0.083%) 2.5MG/3ML NEB HHN ONE (00:30)
[2020-04-30 01:00] LABS: BASOPHILS % 0.6 % (0.0-2.0); EOSINOPHILS % 2.4 % (0.0-5.0); HEMATOCRIT. 38.1 % (36.0-48.0); HEMOGLOBIN. 12.9 g/dL (12.0-16.0); MEAN CORPUSCULAR HEMOGLOBIN 29.2 pg (28.0-32.0); MEAN CORPUSCULAR VOLUME 86.4 fL (81.0-99.0); MEAN PLATELET VOLUME 7.2 fl (7.4-10.4); MONOCYTES % 4.1 % (2.0-8.0); NEUTROPHILS % 84.9 % (40.0-76.0); PLATELET 349 x1000/uL (130-400); RED CELL DISTRIBUTION WIDTH 14.2 % (11.6-14.6)
[2020-04-30 01:06] LABS: CHLORIDE 87 mEq/L (98-107)
[2020-04-30] MEDS: METHYLPREDNISOLONE SOD SUCC 125 MG/2 ML VIAL IV SCH ×3 (02:25→14:00)
[2020-04-30] MEDS ORDERED: HYDROCODONE/ACETAMINOPHEN 5/325MG TABLET PO PRN (16:45)
[2020-04-30] MEDS ORDERED: LORAZEPAM 0.5MG TABLET PO PRN (16:45)
[2020-04-30] MEDS ORDERED: ACETAMINOPHEN 325MG TABLET PO PRN ×2 (16:45)
[2020-04-30] MEDS ORDERED: IPRATROPIUM/ALBUTEROL 0.5-3(2.5)MG/3ML NEB HHN PRN (16:45)
[2020-04-30] MEDS ORDERED: CLONIDINE 0.1MG TABLET PO PRN (16:45)
[2020-04-30] MEDS ORDERED: ONDANSETRON HCL 4MG/2ML INJ IV PRN (16:45)
[2020-04-30] MEDS ORDERED: DOCUSATE SODIUM 100MG CAPSULE PO PRN (16:45)
[2020-04-30] MEDS: SUCRALFATE 1 G/10 ML UDC PO SCH ×2 (17:30→23:49)
[2020-04-30] MEDS: ENOXAPARIN 30MG/0.3ML SYR SUBCUT SCH (18:00)
[2020-04-30] MEDS ORDERED: SODIUM CHLORIDE 45ML SPRAY NS PRN (19:00)
[2020-04-30] MEDS ORDERED: ALBUTEROL 6.7GM HFA INHALER ORI SCH (20:00)
[2020-04-30 20:13] LABS: T4 FREE 1.28 ng/dL (0.76-1.46)
[2020-04-30] MEDS: METHYLPREDNISOLONE SOD SUCC 40 MG/ML VIAL IV SCH (23:49)
[2020-05-01 01:00] VITALS: BP 126/65
[2020-05-01 04:00] VITALS: BP 138/75
[2020-05-01] MEDS: METHYLPREDNISOLONE SOD SUCC 40 MG/ML VIAL IV SCH ×3 (06:25→21:24)
[2020-05-01] MEDS: PANTOPRAZOLE 40MG DR TABLET PO SCH (06:26)
[2020-05-01 06:40] LABS: BASOPHILS % 0.3 % (0.0-2.0); HEMATOCRIT. 34.8 % (36.0-48.0); HEMOGLOBIN. 11.7 g/dL (12.0-16.0); LYMPHOCYTES % 8.1 % (20.0-50.0); MEAN CORPUSCULAR HEMOGLOBIN 28.5 pg (28.0-32.0); MEAN PLATELET VOLUME 8.1 fl (7.4-10.4); MONOCYTES % 2.8 % (2.0-8.0); NEUTROPHILS % 88.8 % (40.0-76.0); PLATELET 368 x1000/uL (130-400); RED BLOOD CELL COUNT 4.09 mill/uL (4.2-5.4); RED CELL DISTRIBUTION WIDTH 14.2 % (11.6-14.6)
[2020-05-01 06:48] LABS: CHLORIDE 93 mEq/L (98-107)
[2020-05-01 08:00] VITALS: BP 119/61
[2020-05-01] MEDS ORDERED: LEFLUNOMIDE 20MG TABLET PO SCH (09:00)
[2020-05-01] MEDS: LISINOPRIL 40MG TABLET PO SCH (10:21)
[2020-05-01] MEDS: SUCRALFATE 1 G/10 ML UDC PO SCH ×4 (10:21→21:24)
[2020-05-01] MEDS: LACTULOSE 20G/30ML UDC PO SCH (10:21)
[2020-05-01] MEDS: AMLODIPINE 10MG TABLET PO SCH (10:22)
[2020-05-01] MEDS: MULTIVITAMINS,THER W-MINERALS TABLET PO SCH (10:22)
[2020-05-01] MEDS ORDERED: LEFLUNOMIDE 10 MG TABLET PO SCH (11:00)
[2020-05-01] MEDS: ASPIRIN 81MG TABLET PO SCH (11:46)
[2020-05-01 12:00] VITALS: BP 126/56
[2020-05-01] MEDS: FLUTICASONE PROPIONATE 50MCG/SPRAY BOTTLE BOTHNSTRLS SCH (13:34)
[2020-05-01 16:00] VITALS: BP 122/58
[2020-05-01] MEDS: ENOXAPARIN 30MG/0.3ML SYR SUBCUT SCH (17:36)
[2020-05-01 20:00] VITALS: BP 118/56
[2020-05-02] VITALS (7 sets, daily range): BP systolic 114–145; BP diastolic 57–74
[2020-05-02 01:01] LABS: CLARITY URINE CLEAR (CLEAR); COLOR URINE YELLOW (YELLOW); KETONES URINE NEGATIVE (NEGATIVE); LEUKOCYTE ESTERASE URINE TRACE (NEGATIVE); NITRITE URINE NEGATIVE (NEGATIVE); OCCULT BLOOD URINE TRACE (NEGATIVE); PH URINE 6.5 (4.5-8.0); PROTEIN URINE NEGATIVE (NEGATIVE); SPECIFIC GRAVITY URINE 1.021 (1.005-1.030); UROBILINOGEN URINE 0.2 E.U./dL (0.2-1.0)
[2020-05-02 01:05] LABS: SODIUM URINE RANDOM 6 mEq/L
[2020-05-02] MEDS: METHYLPREDNISOLONE SOD SUCC 40 MG/ML VIAL IV SCH ×2 (06:20→15:11)
[2020-05-02] MEDS: PANTOPRAZOLE 40MG DR TABLET PO SCH (06:20)
[2020-05-02] MEDS: FLUTICASONE PROPIONATE 50MCG/SPRAY BOTTLE BOTHNSTRLS SCH (08:51)
[2020-05-02] MEDS: LISINOPRIL 40MG TABLET PO SCH (08:52)
[2020-05-02] MEDS: MULTIVITAMINS,THER W-MINERALS TABLET PO SCH (08:52)
[2020-05-02] MEDS: AMLODIPINE 10MG TABLET PO SCH (08:52)
[2020-05-02] MEDS: ASPIRIN 81MG TABLET PO SCH (08:53)
[2020-05-02] MEDS: LACTULOSE 20G/30ML UDC PO SCH ×2 (08:53→09:00)
[2020-05-02 11:07] LABS: CHLORIDE 96 mEq/L (98-107)
[2020-05-02] MEDS: SUCRALFATE 1 G/10 ML UDC PO SCH ×3 (11:13→18:51)
[2020-05-02] MEDS ORDERED: P20 MT (18:02)
[2020-05-02] MEDS ORDERED: ALBU18HF2 IH (18:02)
[2020-05-02] MEDS ORDERED: FLUT1DIS2 INH (18:06)
[2020-05-02] MEDS: ENOXAPARIN 30MG/0.3ML SYR SUBCUT SCH (18:51)
[2020-05-03] MEDS ORDERED: FAMOTIDINE 20MG TABLET PO SCH (07:10)
== END 2020-05-02 20:45 | disposition home health service (06) | DRG 189 ==
LOC: ER 23:52 → 8WST 04-30 02:00 → ENRESERV 04-30 23:46
PROVIDERS: ADMIT Internal Medicine; ATTEND Internal Medicine
DX: J96.00 Acute respiratory failure, unspecified whether with hypoxia or hypercapnia (principal); J44.1 Chronic obstructive pulmonary disease with (acute) exacerbation; E87.1 Hypo-osmolality and hyponatremia; J45.41 Moderate persistent asthma with (acute) exacerbation; K21.9 Gastro-esophageal reflux disease without esophagitis; J45.40 Moderate persistent asthma, uncomplicated; I10 Essential (primary) hypertension; M19.90 Unspecified osteoarthritis, unspecified site; D72.828 Other elevated white blood cell count; J30.9 Allergic rhinitis, unspecified; D72.829 Elevated white blood cell count, unspecified; M06.8A Other specified rheumatoid arthritis, other specified site; R79.89 Other specified abnormal findings of blood chemistry; J98.4 Other disorders of lung; M06.9 Rheumatoid arthritis, unspecified; Z85.42 Personal history of malignant neoplasm of other parts of uterus; Z90.710 Acquired absence of both cervix and uterus; Z88.8 Allergy status to other drugs, medicaments and biological substances; Z79.899 Other long term (current) drug therapy; Z79.82 Long term (current) use of aspirin; Z90.49 Acquired absence of other specified parts of digestive tract
CPT/HCPCS: 36415; 80048; 81003; 82533; 83935; 84300; 85025; 93005; 94644; 96374; 99285; J1650; J2920; J2930

== ENCOUNTER 2024-03-09 23:05 | Inpatient (IN) | payer MEDICARE, OTHER ==
[~2024-03-09] VITALS: Ht 152.4 cm; Wt 52.6 kg
[~2024-03-09 23:05] MED LIST changes: +ALBU18HF2 IH; -ALBUTEROL; +FLUT1DIS2 INH; -LEFL10TA15 MT; +LEFL10TA19 MT; +LISI40TA13 PO; -LISI40TA4 PO; -METO-385 PO; +P20 MT
[2024-03-09] MEDS ORDERED: LISINOPRIL 40MG TABLET PO ONE (23:45)
[2024-03-09 23:55] LABS: BASOPHILS % 0.6 % (0.0-2.0); DIFFERENTIAL COMMENT 0; EOSINOPHILS % 2.5 % (0.0-5.0); HEMOGLOBIN. 9.6 g/dL (12.0-16.0); LYMPHOCYTES % 22.3 % (20.0-50.0); MEAN CORPUSCULAR HEMOGLOBIN 24.3 pg (28.0-32.0); MEAN CORPUSCULAR VOLUME 75.9 fL (81.0-99.0); MEAN PLATELET VOLUME 7.1 fl (7.4-10.4); NEUTROPHILS % 66.6 % (40.0-76.0); PLATELET 437 x1000/uL (130-400); RED BLOOD CELL COUNT 3.95 mill/uL (4.2-5.4); RED CELL DISTRIBUTION WIDTH 21.8 % (11.6-14.6); WHITE BLOOD COUNT 7.7 x1000/uL (4.5-11.0)
[2024-03-09 23:59] LABS: CHLORIDE 96 mEq/L (98-107); POTASSIUM 4.2 mEq/L (3.5-5.1); SODIUM 125 mEq/L (136-145)
[2024-03-10] LABS: CARBON DIOXIDE 25 mEq/L (21-32)
[2024-03-10] MEDS ORDERED: HYDRALAZINE 20MG/ML VIAL IV ONE
[2024-03-10 00:03] LABS: INR 1.1; PROTHROMBIN TIME 11.8 sec (9.6-11.0)
[2024-03-10] MEDS: AMLODIPINE 10MG TABLET PO ONE (00:04)
[2024-03-10 00:05] LABS: CREATININE 0.5 mg/dL (0.6-1.0); GLUCOSE 94 mg/dL (70-105); UREA NITROGEN BLOOD 11 mg/dL (9-23)
[2024-03-10] MEDS: LISINOPRIL 10MG TABLET PO NR (00:05)
[2024-03-10 00:06] LABS: TROPONIN I HIGH SENSITIVITY 7 ng/L (3.0-34)
[2024-03-10] MEDS: HYDRALAZINE 20MG/ML VIAL IV NR (00:11)
[2024-03-10 00:45] LABS: CLARITY URINE CLEAR (CLEAR); COLOR URINE YELLOW (YELLOW); GLUCOSE URINE NEGATIVE (NEGATIVE); KETONES URINE NEGATIVE (NEGATIVE); LEUKOCYTE ESTERASE URINE TRACE (NEGATIVE); NITRITE URINE NEGATIVE (NEGATIVE); OCCULT BLOOD URINE NEGATIVE (NEGATIVE); PH URINE 7.5 (4.5-8.0); PROTEIN URINE NEGATIVE (NEGATIVE); SPECIFIC GRAVITY URINE 1.013 (1.005-1.030); UROBILINOGEN URINE 0.2 E.U./dL (0.2-1.0)
[2024-03-10] MEDS ORDERED: IPRATROPIUM/ALBUTEROL 0.5-3(2.5)MG/3ML NEB HHN PRN (01:30)
[2024-03-10] MEDS ORDERED: ACETAMINOPHEN 325MG TABLET PO PRN ×2 (01:30)
[2024-03-10] MEDS ORDERED: LORAZEPAM 0.5MG TABLET PO PRN (01:30)
[2024-03-10] MEDS ORDERED: ONDANSETRON HCL 4MG/2ML INJ IV PRN (01:30)
[2024-03-10] MEDS ORDERED: GUAIFENESIN 200MG/10ML SUGAR FREE UDC PO PRN (01:30)
[2024-03-10] MEDS ORDERED: DOCUSATE SODIUM 100MG CAPSULE PO PRN (01:30)
[2024-03-10] MEDS ORDERED: HYDRALAZINE 20MG/ML VIAL IV PRN (01:30)
[2024-03-10] MEDS ORDERED: CLONIDINE 0.1MG TABLET PO PRN (01:30)
[2024-03-10 02:07] LABS: ALBUMIN 3.6 g/dL (3.2-4.8); PHOSPHORUS 2.8 mg/dL (2.5-4.9)
[2024-03-10 03:25] LABS: SQUAMOUS EPITHELIAL CELL URINE 1+ /lpf (RARE/1+)
[2024-03-10 03:27] LABS: RBC URINE 0-2 /hpf (0-2); WBC URINE 0-2 /hpf (0-2)
[2024-03-10 03:30] LABS: BACTERIA URINE 1+
[2024-03-10 08:47] LABS: CHLORIDE 100 mEq/L (98-107); POTASSIUM 3.8 mEq/L (3.5-5.1); SODIUM 128 mEq/L (136-145)
[2024-03-10 08:48] LABS: CALCIUM 8.7 mg/dL (8.7-10.4); CARBON DIOXIDE 24 mEq/L (21-32)
[2024-03-10 08:53] LABS: CREATINE KINASE MB FRACTION 2.9 ng/mL (0.5-3.6); GLUCOSE 84 mg/dL (70-105)
[2024-03-10 08:54] LABS: UREA NITROGEN BLOOD 8 mg/dL (9-23)
[2024-03-10 08:55] LABS: ALANINE AMINOTRANSFERASE 16 IU/L (10-49); ALBUMIN 3.2 g/dL (3.2-4.8); ASPARTATE AMINOTRANSFERASE 21 IU/L (<34)
[2024-03-10 08:56] LABS: BILIRUBIN TOTAL 0.3 mg/dL (0.1-1.0)
[2024-03-10 08:57] LABS: CREATININE 0.3 mg/dL (0.6-1.0)
[2024-03-10] MEDS ORDERED: LISINOPRIL 20MG TABLET PO SCH (09:00)
[2024-03-10] MEDS: AMLODIPINE 5MG TABLET PO SCH (10:05)
[2024-03-10] MEDS: LOSARTAN 50 MG TABLET PO SCH (10:05)
[2024-03-10] MEDS: ENOXAPARIN 30MG/0.3ML SYR SUBCUT SCH (10:06)
[2024-03-10] MEDS: SODIUM CHLORIDE 0.9% 1,000 ML IV SCH (10:06)
[2024-03-10] MEDS: METOPROLOL SUCCINATE 50MG ER TABLET PO SCH (11:15)
[2024-03-10] MEDS: MAGNESIUM 4 G PREMIX 100 ML IV NR (11:16)
[2024-03-10 12:00] VITALS: BP 142/64; PULSE 86; RESP 22; TEMP 37.00296; O2SAT 98
[2024-03-10] MEDS ORDERED: LISINOPRIL 40MG TABLET PO SCH (13:00)
[2024-03-10 13:09] VITALS: BP 142/64; PULSE 86; RESP 22; TEMP 37.00296; O2SAT 98
[2024-03-10 13:35] VITALS: BP 142/64; PULSE 86; RESP 20; TEMP 37.0296
[2024-03-10] MEDS ORDERED: INFLUENZA VACCINE 05/PF 0.5 ML SYRINGE IM ONE (16:30)
[2024-03-10] MEDS ORDERED: ALBUTEROL 6.7GM HFA INHALER INH PRN (17:30)
[2024-03-10 20:00] VITALS: BP 143/62; PULSE 78; RESP 18; TEMP 36.78072; O2SAT 100
[2024-03-10 20:47] LABS: CREATINE KINASE MB FRACTION 2.1 ng/mL (0.5-3.6)
[2024-03-11] VITALS: BP 143/66; PULSE 79; RESP 18; TEMP 36.50292; O2SAT 98
[2024-03-11 04:00] VITALS: BP 159/61; PULSE 88; RESP 18; TEMP 37.28076; O2SAT 97
[2024-03-11 05:44] LABS: CARBON DIOXIDE 24 mEq/L (21-32); CHLORIDE 99 mEq/L (98-107); POTASSIUM 3.6 mEq/L (3.5-5.1); SODIUM 128 mEq/L (136-145)
[2024-03-11 05:45] LABS: CALCIUM 8.4 mg/dL (8.7-10.4)
[2024-03-11 05:50] LABS: GLUCOSE 91 mg/dL (70-105); UREA NITROGEN BLOOD 10 mg/dL (9-23)
[2024-03-11 06:15] LABS: CREATININE 0.4 mg/dL (0.6-1.0)
[2024-03-11 08:00] VITALS: BP 172/76; PULSE 81; RESP 20; TEMP 36.72516; O2SAT 100
[2024-03-11] MEDS: FLUTICASONE PROPIONATE 50MCG/SPRAY BOTTLE BOTHNSTRLS SCH (08:52)
[2024-03-11] MEDS: ASPIRIN 81MG TABLET PO SCH (08:53)
[2024-03-11] MEDS: MAGNESIUM 2 G PREMIX 50 ML IV NR (09:44)
[2024-03-11 12:00] VITALS: BP 150/71; PULSE 75; RESP 20; TEMP 36.6696; O2SAT 100
[2024-03-11 16:00] VITALS: BP 147/66; PULSE 81; RESP 18; TEMP 36.89184; O2SAT 97
[2024-03-11 20:00] VITALS: BP 125/69; PULSE 80; RESP 20; TEMP 36.3918; O2SAT 99
[2024-03-12] VITALS (7 sets, daily range): BP systolic 138–199; BP diastolic 67–86; PULSE 67–86; RESP 16–18; TEMP 36.16956–36.72516; O2SAT 99–100
[2024-03-12 07:24] LABS: CALCIUM 8.4 mg/dL (8.7-10.4); CARBON DIOXIDE 24 mEq/L (21-32); CHLORIDE 99 mEq/L (98-107); POTASSIUM 4.1 mEq/L (3.5-5.1); SODIUM 128 mEq/L (136-145)
[2024-03-12 07:30] LABS: CREATININE 0.4 mg/dL (0.6-1.0); GLUCOSE 80 mg/dL (70-105); UREA NITROGEN BLOOD 12 mg/dL (9-23)
[2024-03-12] MEDS: AMLODIPINE 10MG TABLET PO SCH (08:39)
[2024-03-12] MEDS: LOSARTAN 25 MG TABLET PO SCH (08:39)
[2024-03-12] MEDS: MAGNESIUM 4 G PREMIX 100 ML IV NR (09:03)
[2024-03-12] MEDS ORDERED: LOSA25TA26 PO (15:33)
== END 2024-03-12 17:49 | disposition home or self-care (01) | DRG 191 ==
LOC: ER 23:05 → 7WST 03-10 00:03
PROVIDERS: ADMIT Internal Medicine; ATTEND Internal Medicine
DX: J44.1 Chronic obstructive pulmonary disease with (acute) exacerbation (principal); E87.1 Hypo-osmolality and hyponatremia; I16.0 Hypertensive urgency; F41.9 Anxiety disorder, unspecified; I10 Essential (primary) hypertension; E83.42 Hypomagnesemia; Z88.8 Allergy status to other drugs, medicaments and biological substances; M06.9 Rheumatoid arthritis, unspecified; D50.9 Iron deficiency anemia, unspecified; Z90.710 Acquired absence of both cervix and uterus; Z90.49 Acquired absence of other specified parts of digestive tract; Z79.899 Other long term (current) drug therapy; Z79.82 Long term (current) use of aspirin
CPT/HCPCS: 36415; 71045; 80048; 80053; 81003; 82040; 82550; 82553; 83735; 83880; 84100; 84484; 85025; 93005; 93306; 93970; 97161; 97166; 99285; J1650; J3475